=== PATIENT | male | born 1965 | race Caucasian/White ===

== ENCOUNTER 2017-11-14 13:29 | Observation (INO) | payer MEDICAID, OTHER ==
[~2017-11-14] VITALS: Ht 182.9 cm; Wt 84.4 kg
[~2017-11-14 13:29] MED LIST: GABA-585 PO; HYDR-971 PO; INSU100I27 SQ
--- NOTE | 2017-11-14 14:11 | RAD ---
CT head Indication:seizure and confusion Technique: CT head without IV contrast Comparison: None Findings: No pathologic extra-axial or intra-axial fluid collection. The ventricles and basal cisterns are within normal limits. The chung-white differentiation is preserved. No acute intracranial bleed. Orbits are within normal limits. No calvarial lesions. Visualized paranasal sinuses and mastoid air cells are clear. Impression: No acute intracranial process on this noncontrast CT. PQRS Compliance Statement: One or more of the following individualized dose reduction techniques were utilized for this examination: 1. Automated exposure control 2. Adjustment of the mA and/or kV according to patient size 3. Use of iterative reconstruction technique
--- NOTE | 2017-11-14 14:25 | RAD ---
Indication: Seizure and confusion. Technique: Portable AP chest x-ray Comparison: None Findings: Heart is normal in size. Increased pulmonary vascularity is noted with signs of cephalization. Linear atelectasis is seen in the left midlung zone. No pneumothorax or pleural effusion. Visualized bony thorax within normal limits Impression: Findings suggestive of pulmonary vascular congestion without chapito pulmonary edema.
[2017-11-14 14:36] LABS: BASO # 0.1 x10^3/uL (0.0-0.2); BASO % 1 % (0-3); EOS # 0.1 x10^3/uL (0.0-0.7); EOS % 1 % (0-3); HEMATOCRIT 42.9 % (39.0-53.0); HEMOGLOBIN 14.2 g/dL (13.0-17.5); LYMPH # 1.6 x10^3/uL (1.0-4.8); LYMPH % 19 % (24-48); MEAN CORPUSCULAR HEMOGLOBIN 30 pg (25-35); MEAN CORPUSCULAR HGB CONC 33 g/dL (31-37); MEAN CORPUSCULAR VOLUME 91 fL (79-100); MONO # 0.6 x10^3/uL (0.0-1.1); MONO % 7 % (0-9); NEUT # 6.2 x10^3uL (1.8-7.7); NEUT % 72 % (31-73); PLATELET COUNT 295 x10^3/uL (140-400); RED BLOOD COUNT 4.71 x10^6/uL (4.30-5.70); RED CELL DISTRIBUTION WIDTH 13.8 % (11.5-14.5); WHITE BLOOD COUNT 8.7 x10^3/uL (4.0-11.0)
[2017-11-14] MEDS ORDERED: IV NORMAL SALINE 1,000ML 1,000 ML IV ONE (15:30)
--- NOTE | 2017-11-14 15:41 | EKG ---
[address] [address] Test Date: 2017-11-14 Test Time: 13:56:17 Pat Name: MIRZA SIU Department: Room: Gender: M Geropsychologist: : [id number] Requested By: CLINT JI Order Number: [id number] Reading MD: Measurements Intervals [place] Rate: 113 P: 35 KS: 146 QRS: 68 QRSD: 116 T: -61 QT: 340 QTc: 472 Interpretive Statements SINUS TACHYCARDIA COMPLEX(ES) WITH ABERRANT INTRAVENTRICULAR CONDUCTION LOW LIMB LEAD VOLTAGE ST & T ABNORMALITY, CONSIDER INFEROLATERAL ISCHEMIA OR LEFT VENTRICULAR STRAIN ABNORMAL ECG RI6.01 No previous ECG available for comparison
[2017-11-14 15:48] LABS: AMPHETAMINE/METHAMPHETAMINE NEG (NEG); BARBITURATES NEG (NEG); BENZODIAZEPINES NEG (NEG); CANNABINOIDS NEG (NEG); COCAINE NEG (NEG); METHADONE NEG (NEG); OPIATES NEG (NEG); PHENCYCLIDINE NEG (NEG)
[2017-11-14 15:52] LABS: BACTERIA,URINE 0 /HPF (0-FEW); BILIRUBIN,URINE NEG (NEG); CLARITY,URINE CLEAR; COLOR,URINE STRAW; GLUCOSE,URINE 500 mg/dL (NEG); NITRITE,URINE NEG (NEG); RBC,URINE 0 /HPF (0-2); SQUAMOUS EPITHELIAL CELL,UR OCC /LPF; UROBILINOGEN,URINE 0.2 mg/dL (0.2 mg/dL); WBC,URINE 0 /HPF (0-4)
[2017-11-14] MEDS ORDERED: LORazepam 2 MG/ML VIAL IV ONE (16:00)
[2017-11-14 16:10] LABS: ALBUMIN/GLOBULIN RATIO 0.7 (1.0-1.7); CALCIUM 8.8 mg/dL (8.5-10.1); CREATININE 0.8 mg/dL (0.7-1.3); GFR 100.7; MAGNESIUM 1.4 mg/dL (1.8-2.4); POTASSIUM 4.1 mmol/L (3.5-5.1); TOTAL BILIRUBIN 0.4 mg/dL (0.2-1.0); TOTAL PROTEIN 7.2 g/dL (6.4-8.2)
--- NOTE | 2017-11-14 16:19 | PHYS DOC ---
Past History Past Medical History: CAD, Diabetes, High Cholesterol, Hypertension, VA, Seizure Past Surgical History: Other Smoking: Less than 1pk/day Alcohol Use: None Drug Use: None Adult General Chief Complaint Chief Complaint: DIZZY/LIGHT HEADED HPI HPI 52-year-old male patient with history of seizure states he was admitted at [facility] because of coronary artery disease and acute VA and treated medically. Patient states he had 1 episodes of seizure and was seen at [facility] 5 days ago. Patient state he had one episode of grand mal seizure at 5 AM while he was at bed and another episode at 10 AM when he was at the shower and woke up on the floor of shower. Patient states he confused and dizzy and in no when he has to go and drove to this hospital. Patient denies chest pain, shortness of breath, focal neuro deficit, nausea and vomiting, headache, fever and chills, flulike symptoms. Patient states he had episode of seizure every 3 days. Patient denies using alcohol or illegal drugs. Review of Systems Review of Systems Constitutional: Denies fever or chills [] Eyes: Denies change in visual acuity, redness, or eye pain [] HENT: Denies nasal congestion or sore throat [] Respiratory: Denies cough or shortness of breath [] Cardiovascular: No additional information not addressed in HPI [] GI: Denies abdominal pain, nausea, vomiting, bloody stools or diarrhea [] : Denies dysuria or hematuria [] Musculoskeletal: Denies back pain or joint pain [] Integument: Denies rash or skin lesions [] Neurologic: Denies headache, focal weakness or sensory changes [] Endocrine: Denies polyuria or polydipsia [] All other systems were reviewed and found to be within normal limits, except as documented in this note. Current Medications Current Medications Current Medications Medications (Trade) Dose Ordered Sig/Jewel Start Time Stop Time Status Last Admin Dose Admin Lorazepam (Ativan) 1 mg 1X ONCE 11/14/17 16:00 11/14/17 16:01 DC Sodium Chloride 500 ml @ 0 mls/hr 1X ONCE 11/14/17 15:30 11/14/17 15:31 DC 11/14/17 15:20 1,000 MLS/HR Allergies Allergies Allergies Coded Allergies Type Severity Reaction Last Updated Verified No Known Drug Allergies 05/24/15 No Physical Exam Physical Exam Constitutional: Well developed, well nourished, no acute distress, non-toxic appearance. [] HENT: Normocephalic, atraumatic, bilateral external ears normal, oropharynx moist, no oral exudates, nose normal. [] Eyes: PERRLA, EOMI, conjunctiva normal, no discharge. [] Neck: Normal range of motion, no tenderness, supple, no stridor. [] Cardiovascular:Heart rate regular rhythm, no murmur [] Lungs & Thorax: Bilateral breath sounds clear to auscultation [] Abdomen: Bowel sounds normal, soft, no tenderness, no masses, no pulsatile masses. [] Skin: Warm, dry, no erythema, no rash. [] Back: No tenderness, no CVA tenderness. [] Extremities: No tenderness, no cyanosis, no clubbing, ROM intact, no edema. [] Neurologic: Alert and oriented X 3, normal motor function, normal sensory function, no focal deficits noted. [] Psychologic: Affect normal, judgement normal, mood normal. [] Current Patient Data Vital Signs Vital Signs Date Time Temp Pulse Resp B/P (MAP) Pulse Ox O2 Delivery O2 Flow Rate FiO2 11/14/17 13:35 99.6 117 20 97 Room Air Lab Results Laboratory Tests Test 11/14/17 14:15 11/14/17 15:15 White Blood Count 8.7 x10^3/uL (4.0-11.0) Red Blood Count 4.71 x10^6/uL (4.30-5.70) Hemoglobin 14.2 g/dL (13.0-17.5) Hematocrit 42.9 % (39.0-53.0) Mean Corpuscular Volume 91 fL (79-100) Mean Corpuscular Hemoglobin 30 pg (25-35) Mean Corpuscular Hemoglobin Concent 33 g/dL (31-37) Red Cell Distribution Width 13.8 % (11.5-14.5) Platelet Count 295 x10^3/uL (140-400) Neutrophils (%) (Auto) 72 % (31-73) Lymphocytes (%) (Auto) 19 % (24-48) L Monocytes (%) (Auto) 7 % (0-9) Eosinophils (%) (Auto) 1 % (0-3) Basophils (%) (Auto) 1 % (0-3) Neutrophils # (Auto) 6.2 x10^3uL (1.8-7.7) Lymphocytes # (Auto) 1.6 x10^3/uL (1.0-4.8) Monocytes # (Auto) 0.6 x10^3/uL (0.0-1.1) Eosinophils # (Auto) 0.1 x10^3/uL (0.0-0.7) Basophils # (Auto) 0.1 x10^3/uL (0.0-0.2) Prothrombin Time 11.0 SEC (9.4-11.4) Prothrombin Time INR 1.1 (0.9-1.1) Urine Collection Type Unknown Urine Color Straw Urine Clarity Clear Urine pH 7.0 Urine Specific [place] 1.010 Urine Protein 30 mg/dl (NEG-TRACE) Urine Glucose (UA) 500 mg/dL (NEG) Urine Ketones (Stick) Neg mg/dL (NEG) Urine Blood Neg (NEG) Urine Nitrite Neg (NEG) Urine Bilirubin Neg (NEG) Urine Urobilinogen Dipstick 0.2 mg/dL (0.2 mg/dL) Urine Leukocyte Esterase Neg (NEG) Urine RBC 0 /HPF (0-2) Urine WBC 0 /HPF (0-4) Urine Squamous Epithelial Cells Occ /LPF Urine Bacteria 0 /HPF (0-FEW) Troponin I Quantitative < 0.017 ng/mL (0-0.055) Urine Opiates Screen Neg (NEG) Urine Methadone Screen Neg (NEG) Urine Barbiturates Neg (NEG) Urine Phencyclidine Screen Neg (NEG) Urine Amphetamine/Methamphetamine Neg (NEG) Urine Benzodiazepines Screen Neg (NEG) Urine Cocaine Screen Neg (NEG) Urine Cannabinoids Screen Neg (NEG) Urine Ethyl Alcohol Neg (NEG) EKG EKG EKG interpreted by me. EKG at 1358 showed sinus tachycardia at rate of 113, complexes with aberrant intraventricular conduction, no voltage QRS, poor R- wave progress in anteroseptal leads, no acute ST and T-wave abnormality Radiology/Procedures Radiology/Procedures [] Course & Med Decision Making Course & Med Decision Making Pertinent Labs and Imaging studies reviewed. (See chart for details) Evaluation of patient in ER showed 52-year-old female patient with history of seizure and is sent MRI the ER because of 2 episodes of seizure today and confusion and dizziness and not feeling right. Patient had tachycardia 110 without fever or hypertension or confusion. Patient had unremarkable physical exam. Labs showed CHF and low magnesium. CT head and chest x-ray was unremarkable except for CHF. Evaluation treated with 500 mL normal saline and acumen and his tachycardia improved. Plan to admit patient with diagnosis of status epilepticus and CHF and dizziness. [] Dragon Disclaimer Dragon Disclaimer This electronic medical record was generated, in whole or in part, using a voice recognition dictation system. Departure Departure: Impression: Primary Impression: Status epilepticus Additional Impressions: Dizziness Tachycardia Fall at home Hypomagnesemia Uncontrolled diabetes mellitus Tobacco abuse Tobacco abuse counseling CHF (congestive heart failure) Disposition: 09 ADMITTED INPATIENT (At 1624) Admitting Physician: Sangita Pritchett Condition: IMPROVED Referrals: PCPJESU (PCP) Critical Care Note Total Time (mins): 90 Problem Qualifiers CLINT JI MD Nov 14, 2017 16:19
[2017-11-14] MEDS ORDERED: MAGNESIUM OXIDE 400 MG TABLET PO ONE (17:00)
[2017-11-14 17:45] VITALS: BP 117/77
[2017-11-14] MEDS ORDERED: INSU100C SQ (18:27)
[2017-11-14] MEDS ORDERED: METO50TA4 PO (18:27)
[2017-11-14] MEDS ORDERED: ISOS30TA4 PO (18:27)
[2017-11-14] MEDS ORDERED: DOXE50CA PO (18:27)
[2017-11-14] MEDS ORDERED: SPIR25TA3 PO (18:27)
[2017-11-14] MEDS ORDERED: GABA-586 PO (18:27)
[2017-11-14] MEDS ORDERED: LISI2.5T PO (18:27)
[2017-11-14] MEDS ORDERED: NICO1PAT21 TP (18:27)
[2017-11-14] MEDS ORDERED: CLOP75TA PO (18:27)
[2017-11-14] MEDS ORDERED: DULA0.75 SQ (18:27)
[2017-11-14] MEDS ORDERED: ATORVASTATIN CA80 MG PO (18:27)
[2017-11-14] MEDS ORDERED: LEVE500T56 PO (18:27)
[2017-11-14] MEDS: oxyCODONE IR 5 MG TABLET PO PRN (19:54)
[2017-11-14] MEDS: NICOTINE 21MG PATCH. TD SCH (20:50)
[2017-11-14] MEDS: GABAPENTIN 300 MG CAPSULE. PO SCH (20:50)
[2017-11-14] MEDS: levETIRAcetam 500 MG TABLET PO SCH (20:51)
[2017-11-14] MEDS ORDERED: DOXEPIN HCL 25 MG CAPSULE PO SCH (21:00)
[2017-11-14] MEDS ORDERED: METOPROLOL SUCC 24HR ER 50 MG TAB.ER.24H. PO SCH (21:00)
[2017-11-14] MEDS ORDERED: ATORVASTATIN CALCIUM 20 MG TABLET PO SCH (21:00)
[2017-11-14] MEDS: INSULIN ASPART 300 UNITS/3 ML INSULN.PEN SQ SCH (21:49)
[2017-11-14 23:00] VITALS: BP 92/66
--- NOTE | 2017-11-14 23:46 | HP ---
ADMIT DATE: 11/14/2017 HISTORY OF PRESENT ILLNESS: The patient is a 52-year-old male patient with multitude of medical problems who apparently was diagnosed with seizures, although the specifics are very confusing. He, according to him, [facility] of coronary artery disease and acute myocardial infarction. According to him, he was even life-flighted from [place] to [facility] the [place]. They did cardiac catheterization; however, his arteries were too small to put a stent and while he was there, he developed seizure because that was induced by tramadol. He had a seizure 5 days ago and was admitted to [facility], was discharged home and apparently he claimed that he had a grand mal seizure at 5 o'clock in the morning and he was at bed and another episode at 10 a.m. while having a shower and he woke up on the floor of the shower. He was confused and dizzy and there was no one there to help, so he drove himself to the hospital. The patient denied any chest pain or shortness of breath, but when he came inside the hospital, he complained of aches and pains all over because of the fall in the bathtub. He was evaluated in the Emergency Room and was admitted for breakthrough seizures. His story does not really add up to me; however, he claimed that he was seen by Dr. Mccord, who started him on Keppra, something that is easily verifiable, although I asked him whether Dr. Mccord has advised him not to drive and he said "yes," but apparently there was nobody there to drive him to the hospital, while in fact he was in a postictal state. His lab work in the Emergency Room was unremarkable. In particular, there is no metabolic reason for light hyponatremia or hypercalcemia or hypoglycemia. He has no leukocytosis. He was afebrile and his urine toxicology screen was negative and basically was admitted to increase the dose of Keppra and to consult Dr. Mccord to assist in his management. PAST MEDICAL HISTORY: Significant for diabetes, hypertension, hypercholesterolemia, coronary artery disease status post myocardial infarction, and seizure disorder. PAST SURGICAL HISTORY: Significant for cervical laminectomy, sinus surgery, LASIK surgery of both eyes, and left shoulder surgery. ALLERGIES: He claimed that he is ALLERGIC TO TRAMADOL and ALL NONSTEROIDAL ANTI-INFLAMMATORY MEDICATIONS INCLUDING TORADOL, IBUPROFEN, AND ALEVE MEDICATIONS: He is currently on Keppra 250 mg, he takes 2 tablets twice a day; tramadol 50 mg every 6 hours; nicotine patch 21 mg topically daily; atorvastatin 80 mg daily; Plavix 75 mg once a day; metoprolol succinate extended release 50 mg once a day; gabapentin 300 mg 3 times a day; isosorbide dinitrate 30 mg once a day; lisinopril 2.5 mg daily, spironolactone 25 mg half a tablet once a day; Humalog 3 times a day; Lantus daily; promethazine with codeine; and he is also on doxepin 25 mg 1-2 tablets at bedtime. FAMILY HISTORY: He has 3 sisters, the youngest has type 1 diabetes. His father is still alive at age of 82 and has hypertension, non-Hodgkin lymphoma. His mother is alive at age of 82 and healthy. SOCIAL HISTORY: He is , has no children. He smokes 5-6 cigarettes per day. 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 He stopped using marijuana about 15 years ago. PHYSICAL EXAMINATION: GENERAL: On examining him, he looked pale, but no jaundice, cyanosis, or thyromegaly. No jugular venous distention. No limb edema. VITAL SIGNS: His heart rate was 117, blood pressure was 131/87, temperature was 99.6, respiratory rate 20, and oxygen saturation was 97%. HEAD, EYES, EARS, NOSE, AND THROAT: Showed normocephalic, atraumatic. NECK: Supple. HEART: Showed normal first and second heart sounds with no gallop, rub, or murmur. CHEST: Clear to auscultation. No crepitation or rhonchi. ABDOMEN: Distended, soft, nontender. No guarding or rigidity. No organomegaly. Hernial orifice is intact. Bowel sounds normal. NEUROLOGIC: He was awake, alert, responding appropriately. Cranial nerves intact. He moves extremities without difficulty, ambulates without assistance or assistive devices. LABORATORY DATA: His lab work showed a white cell count of 8700, hemoglobin 14, hematocrit 42, MCV 91, and platelet count 295,000. His chemistry showed a serum sodium 140, potassium 4.1, chloride 104, bicarbonate 26, anion gap of 10, BUN 13, creatinine 0.8, estimated GFR was 100 mL per minute. His glucose was 279, lactic acid was 1. Calcium was 8.8, magnesium was 1.4. Total bilirubin, AST, ALT, alkaline phosphatase were normal. His beta natriuretic peptide was 1768. Total protein was 7.2, albumin 3. His prothrombin time was 11, INR 1.1. His urinalysis was essentially unremarkable apart from trace of proteinuria and toxicology screen was negative. He has had a CT scan of the head, which basically showed no pathological extraaxial and intraaxial fluid collection. The ventricles and basal cisterns are within normal limits. The Muller-white differentiation is preserved. No acute intracranial bleed. The orbits are within normal limits. No calvarial lesion visualized. Paranasal sinuses and mastoid air cells are clear. His chest x-ray showed that the heart is normal in size. Increased pulmonary vascularity is noted with signs of cephalization. Linear atelectasis is seen in the left mid lung zone. No pneumothorax or pleural effusion visualized. Bony thorax are within normal limit. Findings suggestive of pulmonary vascular congestion without chapito pulmonary edema. PLAN: My plan is to continue all his medication and consult Dr. Mccord and the Cardiology team, do 2 more sets of cardiac enzyme, and get the records from [facility] to verify all his claims. NILDA RICE MD DR: KAYODE/idris JOB#: [id number] / [id number]
[2017-11-15] MEDS: oxyCODONE IR 5 MG TABLET PO PRN ×2 (04:04→11:19)
[2017-11-15 06:06] VITALS: BP 117/80
[2017-11-15 06:44] LABS: HEMATOCRIT 40.5 % (39.0-53.0); HEMOGLOBIN 13.3 g/dL (13.0-17.5); RED BLOOD COUNT 4.4 x10^6/uL (4.30-5.70); RED CELL DISTRIBUTION WIDTH 13.8 % (11.5-14.5); WHITE BLOOD COUNT 7.2 x10^3/uL (4.0-11.0)
[2017-11-15 06:53] LABS: ALBUMIN 2.7 g/dL (3.4-5.0); ALBUMIN/GLOBULIN RATIO 0.7 (1.0-1.7); CALCIUM 8.5 mg/dL (8.5-10.1); CREATININE 0.6 mg/dL (0.7-1.3); GFR 140.4; POTASSIUM 3.9 mmol/L (3.5-5.1); TOTAL BILIRUBIN 0.3 mg/dL (0.2-1.0); TOTAL PROTEIN 6.4 g/dL (6.4-8.2)
[2017-11-15] MEDS: levETIRAcetam 500 MG TABLET PO SCH (08:29)
[2017-11-15] MEDS ORDERED: ACETAMINOPHEN 325 MG TABLET PO PRN (08:30)
[2017-11-15] MEDS: GABAPENTIN 300 MG CAPSULE. PO SCH ×2 (08:30→13:48)
[2017-11-15] MEDS: NICOTINE 21MG PATCH. TD SCH (08:31)
[2017-11-15] MEDS: INSULIN ASPART 300 UNITS/3 ML INSULN.PEN SQ SCH ×2 (08:36→12:00)
[2017-11-15] MEDS ORDERED: CLOPIDOGREL BISULFATE 75 MG TABLET PO SCH (09:00)
[2017-11-15] MEDS ORDERED: SPIRONOLACTONE 25 MG TABLET PO SCH (09:00)
[2017-11-15] MEDS ORDERED: LISINOPRIL 2.5 MG TABLET PO SCH (09:00)
[2017-11-15] MEDS ORDERED: ISOSORBIDE MONONITRATE ER 30 MG TAB.ER.24H PO SCH (09:00)
--- NOTE | 2017-11-15 10:38 | PDOC2 ---
PAWEL CONCEPCION APRN 11/15/17 1038: CONSULT Date of Admission DATE: 11/15/17 TIME: 10:22 Reason for Consult: CAD Problem List Problems Medical Problems: (1) CHF (congestive heart failure) Status: Acute (2) Dizziness Status: Acute (3) Fall at home Status: Acute (4) Hypomagnesemia Status: Acute (5) Status epilepticus Status: Acute (6) Tachycardia Status: Acute (7) Tobacco abuse Status: Acute (8) Tobacco abuse counseling Status: Acute (9) Uncontrolled diabetes mellitus Status: Acute History of Present Illness Mr Peralta is a 52 year old male who presented to the ED with complaints of seizures. He presents with complaints of one episode of grand mal seizure at 5 AM yesterday while he was at bed and a second seizure at 10 AM when he was in the shower. He reports that he woke up on the floor of shower. Afterwards he reports being confused and dizzy but had noone to transport him so decided to drive himself to the hospital. He was reportedly admitted within the last 1 month to [facility] for [place] and underwent an extensive cardiac workup. Consult was called due to the patient history of coronary disease with recent [place]. He denied chest pain, shortness of breath, congestive symptoms, palpitations or focal neuro deficit. Patient reports episodes of seizure every 3 days. He currently complains of pain "all over" but worse with deep inspiration and movement. Past Medical History diabetes, hypertension, hypercholesterolemia, coronary artery disease status post myocardial infarction, and seizure disorder. Past Surgical History cervical laminectomy, sinus surgery, LASIK surgery of both eyes, and left shoulder surgery. Family History type 1 diabetes, hypertension, non-Hodgkin lymphoma Social History He is , has no children. He smokes 5-6 cigarettes per day. He does not drink alcohol. He stopped using marijuana about 15 years ago and denies other illicit drugs. Current Medications Current Medications Sodium Chloride 500 ml @ 0 mls/hr 1X ONCE IV Last administered on 11/14/17at 15: 20; Start 11/14/17 at 15:30; Stop 11/14/17 at 15:31; Status DC Lorazepam (Ativan) 1 mg 1X ONCE IV Last administered on 11/14/17at 16:00; Start 11/14/17 at 16:00; Stop 11/14/17 at 16:01; Status DC Magnesium Oxide (Magnesium Oxide) 400 mg 1X ONCE PO Last administered on 17:06; Start 11/14/17 at 17:00; Stop 11/14/17 at 17:01; Status DC Oxycodone HCl (Roxicodone) 5 mg PRN Q6HRS PRN PO PAIN Last administered on 04:04; Start 11/14/17 at 19:15 Clopidogrel Bisulfate (Plavix) 75 mg DAILY PO Last administered on 11/15/17 08: 29; Start 11/15/17 at 09:00 Gabapentin (Neurontin) 300 mg TID PO Last administered on 11/15/17 08:30; Start 11/14/17 at 21:00 Isosorbide Mononitrate (Imdur) 15 mg DAILY PO Last administered on 11/15/17 08: 30; Start 11/15/17 at 09:00 Levetiracetam (Keppra) 500 mg BID PO Last administered on 11/15/17 08:29; Start 11/14/17 at 21:00 Lisinopril (Prinivil) 2.5 mg DAILY PO Last administered on 11/15/17 08:29; Start 11/15/17 at 09:00 Metoprolol Succinate (Toprol Xl) 50 mg QHS PO Last administered on 11/14/17 20: 50; Start 11/14/17 at 21:00 Nicotine (Nicoderm Cq 21mg) 1 patch DAILY TD Last administered on 11/15/17 08: 31; Start 11/14/17 at 20:30 Spironolactone (Aldactone) 12.5 mg DAILY PO Last administered on 11/15/17 08:31 ; Start 11/15/17 at 09:00 Atorvastatin Calcium (Lipitor) 80 mg QHS PO Last administered on 11/14/17 21:25 ; Start 11/14/17 at 21:00 Doxepin HCl (SINEquan) 50 mg QHS PO Last administered on 11/14/17 21:25; Start 11/14/17 at 21:00 Insulin Aspart (NovoLOG) 7 units TIDWMEALS SQ Last administered on 11/15/17 08: 36; Start 11/14/17 at 20:00 Acetaminophen (Tylenol) 650 mg PRN Q6HRS PRN PO PAIN / TEMP; Start 11/15/17 at 08:30; Stop 11/15/17 at 08:40; Status DC Active Scripts Active Reported Trulicity (Dulaglutide) 0.75 Mg/0.5 Ml Pen.injctr 0.75 Mg SQ Humalog (Insulin Lispro) 100 Unit/1 Ml Cartridge 7 Unit SQ TIDWMEALS Doxepin Hcl 50 Mg Capsule 1 Cap PO QHS Spironolactone 25 Mg Tablet 0.5 Tab PO DAILY Lisinopril 2.5 Mg Tablet 1 Tab PO DAILY Isosorbide Mononitrate Er (Isosorbide Mononitrate) 30 Mg Tab.er.24h 0.5 Tab PO DAILY Gabapentin 300 Mg Capsule 300 Mg PO TID Toprol Xl (Metoprolol Succinate) 50 Mg Tab.er.24h 1 Tab PO QHS Clopidogrel (Clopidogrel Bisulfate) 75 Mg Tablet 1 Tab PO DAILY Atorvastatin Calcium 80 Mg Tablet 1 Tab PO DAILY NICODERM CQ 21mg (Nicotine) 1 Each Patch.td24 1 Patch TP DAILY Keppra (Levetiracetam) 500 Mg Tablet 1 Tab PO BID Allergies: Coded Allergies: acetaminophen (Verified Allergy, Severe, seizures, 11/15/17) ibuprofen (Verified Allergy, Severe, seizures, 11/15/17) ketorolac (Verified Allergy, Intermediate, seizure, 11/15/17) tramadol (Verified Allergy, Intermediate, 11/15/17) Review of System as per HPI General: Alert, Oriented X3, Cooperative, No acute distress HEENT: Atraumatic, EOMI Lungs: Clear to auscultation Heart: Regular rate, Normal S1, Normal S2, Other (no significant murmurs, no gallops, clicks or rubs) Abdomen: Normal bowel sounds, Soft, No tenderness Extremities: No cyanosis, Normal pulses, Other (1+ edema) Neuro: Normal speech, Strength at 5/5 X4 ext Psych/Mental Status: Mental status NL, Other (flat affect) VITALS Vital Signs Date Time Temp Pulse Resp B/P (MAP) Pulse Ox O2 Delivery O2 Flow Rate FiO2 11/15/17 08:30 78 117/80 11/15/17 06:06 97.4 20 96 Room Air Labs Laboratory Tests Test 11/14/17 14:15 11/14/17 15:15 11/14/17 16:35 11/14/17 20:04 White Blood Count 8.7 x10^3/uL (4.0-11.0) Red Blood Count 4.71 x10^6/uL (4.30-5.70) Hemoglobin 14.2 g/dL (13.0-17.5) Hematocrit 42.9 % (39.0-53.0) Mean Corpuscular Volume 91 fL (79-100) Mean Corpuscular Hemoglobin 30 pg (25-35) Mean Corpuscular Hemoglobin Concent 33 g/dL (31-37) Red Cell Distribution Width 13.8 % (11.5-14.5) Platelet Count 295 x10^3/uL (140-400) Neutrophils (%) (Auto) 72 % (31-73) Lymphocytes (%) (Auto) 19 % (24-48) Monocytes (%) (Auto) 7 % (0-9) Eosinophils (%) (Auto) 1 % (0-3) Basophils (%) (Auto) 1 % (0-3) Neutrophils # (Auto) 6.2 x10^3uL (1.8-7.7) Lymphocytes # (Auto) 1.6 x10^3/uL (1.0-4.8) Monocytes # (Auto) 0.6 x10^3/uL (0.0-1.1) Eosinophils # (Auto) 0.1 x10^3/uL (0.0-0.7) Basophils # (Auto) 0.1 x10^3/uL (0.0-0.2) Prothrombin Time 11.0 SEC (9.4-11.4) Prothromb Time International Ratio 1.1 (0.9-1.1) Urine Collection Type Unknown Urine Color Straw Urine Clarity Clear Urine pH 7.0 Urine Specific [place] 1.010 Urine Protein 30 mg/dl (NEG-TRACE) Urine Glucose (UA) 500 mg/dL (NEG) Urine Ketones (Stick) Neg mg/dL (NEG) Urine Blood Neg (NEG) Urine Nitrite Neg (NEG) Urine Bilirubin Neg (NEG) Urine Urobilinogen Dipstick 0.2 mg/dL (0.2 mg/dL) Urine Leukocyte Esterase Neg (NEG) Urine RBC 0 /HPF (0-2) Urine WBC 0 /HPF (0-4) Urine Squamous Epithelial Cells Occ /LPF Urine Bacteria 0 /HPF (0-FEW) Sodium Level 140 mmol/L (136-145) Potassium Level 4.1 mmol/L (3.5-5.1) Chloride Level 104 mmol/L (98-107) Carbon Dioxide Level 26 mmol/L (21-32) Anion Gap 10 (6-14) Blood Urea Nitrogen 13 mg/dL (8-26) Creatinine 0.8 mg/dL (0.7-1.3) Estimated GFR (Cockcroft-Gault) 100.7 BUN/Creatinine Ratio 16 (6-20) Glucose Level 279 mg/dL (70-99) Calcium Level 8.8 mg/dL (8.5-10.1) Magnesium Level 1.4 mg/dL (1.8-2.4) Total Bilirubin 0.4 mg/dL (0.2-1.0) Aspartate Amino Transf (AST/SGOT) 28 U/L (15-37) Alanine Aminotransferase (ALT/SGPT) 42 U/L (16-63) Alkaline Phosphatase 111 U/L (46-116) Creatine Kinase 292 U/L (39-308) Creatine Kinase MB (Mass) 2.0 ng/mL (0.0-3.6) Creatine Kinase MB Relative Index 0.7 % (0-4) Troponin I Quantitative < 0.017 ng/mL (0-0.055) LO-Cer-J-Type Natriuretic Peptide 1768 pg/mL (0-124) Total Protein 7.2 g/dL (6.4-8.2) Albumin 3.0 g/dL (3.4-5.0) Albumin/Globulin Ratio 0.7 (1.0-1.7) Urine Opiates Screen Neg (NEG) Urine Methadone Screen Neg (NEG) Urine Barbiturates Neg (NEG) Urine Phencyclidine Screen Neg (NEG) Urine Amphetamine/Methamphetamine Neg (NEG) Urine Benzodiazepines Screen Neg (NEG) Urine Cocaine Screen Neg (NEG) Urine Cannabinoids Screen Neg (NEG) Urine Ethyl Alcohol Neg (NEG) Lactic Acid Level 1.0 mmol/L (0.4-2.0) Glucose (Fingerstick) 299 mg/dL (70-99) Test 11/15/17 06:10 11/15/17 07:34 White Blood Count 7.2 x10^3/uL (4.0-11.0) Red Blood Count 4.40 x10^6/uL (4.30-5.70) Hemoglobin 13.3 g/dL (13.0-17.5) Hematocrit 40.5 % (39.0-53.0) Mean Corpuscular Volume 92 fL (79-100) Mean Corpuscular Hemoglobin 30 pg (25-35) Mean Corpuscular Hemoglobin Concent 33 g/dL (31-37) Red Cell Distribution Width 13.8 % (11.5-14.5) Platelet Count 259 x10^3/uL (140-400) Sodium Level 141 mmol/L (136-145) Potassium Level 3.9 mmol/L (3.5-5.1) Chloride Level 107 mmol/L (98-107) Carbon Dioxide Level 25 mmol/L (21-32) Anion Gap 9 (6-14) Blood Urea Nitrogen 12 mg/dL (8-26) Creatinine 0.6 mg/dL (0.7-1.3) Estimated GFR (Cockcroft-Gault) 140.4 BUN/Creatinine Ratio 20 (6-20) Glucose Level 206 mg/dL (70-99) Calcium Level 8.5 mg/dL (8.5-10.1) Total Bilirubin 0.3 mg/dL (0.2-1.0) Aspartate Amino Transf (AST/SGOT) 22 U/L (15-37) Alanine Aminotransferase (ALT/SGPT) 35 U/L (16-63) Alkaline Phosphatase 90 U/L (46-116) Total Protein 6.4 g/dL (6.4-8.2) Albumin 2.7 g/dL (3.4-5.0) Albumin/Globulin Ratio 0.7 (1.0-1.7) Glucose (Fingerstick) 193 mg/dL (70-99) Images EKG - sinus rhythm, IVCD, non specific st/t abn. Head CT Impression: No acute intracranial process on this noncontrast CT. CXR - Impression: Findings suggestive of pulmonary vascular congestion without chapito pulmonary edema. Assessment/Plan 1. Recent [place] with extensive workup including cardiac cath at [facility] by patient report - CE negative. EKG without acute abnormalities. Request records from [facility]. 2. Seizures - Neuro consulted. request records from [facility]. 3. Mild pulmonary congestion, likely secondary to systolic dysfunction by history. 4. hypertension - continue home meds 5. hyperlipidemia - continue statin, request recent lipid profile 6. diabetes mellitus - per PCP Problems: RODERICK TORRES MD 11/15/17 1614: CONSULT Allergies: Coded Allergies: acetaminophen (Verified Allergy, Severe, seizures, 11/15/17) ibuprofen (Verified Allergy, Severe, seizures, 11/15/17) ketorolac (Verified Allergy, Intermediate, seizure, 11/15/17) tramadol (Verified Allergy, Intermediate, 11/15/17) Assessment/Plan Patient seen and examined Recent myocardial infarction treated at [facility]. Reportedly recent catheterization. Patient now appears more comfortable. No acute EKG changes. No elevation in troponin. We'll continue present medical treatment and obtain records from [facility]. Seizure disorder. Neurology consultation pending. Probable mild acute on chronic systolic heart failure. We'll treat with diuretics. Hypertension. Continue medical treatment. Hyperlipidemia. Statins. Diabetes mellitus as per the primary service. Thank you for allowing us to participate in the care of your patient. Problems: PAWEL CONCEPCION APRN Nov 15, 2017 10:38 RODERICK TORRES MD Nov 15, 2017 16:14
[2017-11-15 11:04] VITALS: BP 110/78
[2017-11-15] MEDS ORDERED: oxyCODONE IR 5 MG TABLET PO PRN (11:45)
[2017-11-15] MEDS ORDERED: MAGNESIUM SULFATE 1GM 100 ML IV ONE (13:30)
[2017-11-15] MEDS ORDERED: METHOCARBAMOL 500 MG TABLET PO PRN (13:30)
[2017-11-15] MEDS ORDERED: METHOCARBAMOL 500 MG TABLET PO ONE (13:30)
[2017-11-15 14:41] VITALS: BP 108/78
--- NOTE | 2017-11-15 16:02 | EKG ---
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
[2017-11-15 20:08] LABS: HEMOGLOBIN A1C 11.4 % (4.8-5.6)
--- NOTE | 2017-11-15 21:32 | DS ---
DATE OF DISCHARGE: 11/15/2017 REASON FOR DISCHARGE: Against medical advice. DISCHARGE DIAGNOSES: 1. Seizure activity. 2. Interaction of tramadol with alcohol on 11/10/2017. 3. Seizure activity secondary to tramadol. 4. History of polysubstance abuse. Drug screen negative. 5. Chronic pain. 6. Cardiomyopathy with ejection fraction of 23%. 7. Elevated troponin. The patient is made aware of the need for further workup and declined. 8. Tobacco use disorder. HOSPITAL COURSE: The patient was admitted by Dr. Pritchett on 11/14/2017 for possible seizure, which occurred in the shower. He had incidentally had another seizure on 11/10/2017. At that time, he had alcohol in his system and had been taking tramadol. He was admitted and placed on his medications. He was seen by Dr. Mccord. He was treated for his pain with oxycodone as he claims multiple drug allergies including Tylenol. He was seen by Cardiology, who were waiting for the results of his cath. His troponin increased and he was strongly encouraged to stick around for further workup. He was found outside smoking. He was not satisfied with his pain management and so left strongly against medical advice. PHYSICAL EXAMINATION: He was examined earlier: VITAL SIGNS: Blood pressure was 110/78, pulse 84, respirations 20, temperature 98.2, and pulse ox 95% on room air. GENERAL: The patient was alert and oriented. HEENT: Tongue was moist. NECK: Supple. LUNGS: Clear. Trapezius muscle tenderness noted. CARDIOVASCULAR: Regular rhythm and rate. EXTREMITIES: Without edema. He has ruborous lower extremities consistent with venous insufficiency. LABORATORY DATA: As stated, his troponin increased from 0.017 to 0.105. PLAN: Again left AMA. Strongly encouraged to stay. Declined. SUSU KIRAN DO DR: RAD/idris JOB#: [id number] / [id number]
== END 2017-11-15 14:45 | disposition left against medical advice (07) ==
LOC: ER 13:29 → OBSVTOIN 17:30 → 1 SOUTH 17:30 → INTOOBSV 17:30 → OBSVTOIN 17:36
PROVIDERS: ADMIT Internal Medicine; ATTEND Internal Medicine
DX: G40.409 Other generalized epilepsy and epileptic syndromes, not intractable, without status epilepticus (principal); E11.9 Type 2 diabetes mellitus without complications; E78.00 Pure hypercholesterolemia, unspecified; I25.10 Atherosclerotic heart disease of native coronary artery without angina pectoris; F17.210 Nicotine dependence, cigarettes, uncomplicated; G89.29 Other chronic pain; I25.2 Old myocardial infarction; I42.9 Cardiomyopathy, unspecified; I11.0 Hypertensive heart disease with heart failure; I50.23 Acute on chronic systolic (congestive) heart failure; E78.5 Hyperlipidemia, unspecified
CPT/HCPCS: 36415; 70450; 71045; 80053; 80061; 80307; 81001; 82553; 82947; 83036; 83605; 83735; 83880; 84484; 85025; 85027; 85610; 87040; 93005; 96361; 96365; 96372; 96375; 97162; 97165; 99285; G0378; J1815; J2060; J3475; G0379; G0479; J7030

== ENCOUNTER 2017-12-09 09:46 | Inpatient (IN) | payer OTHER ==
[2017-12-09] VITALS (8 sets, daily range): BP systolic 98–111; BP diastolic 58–80
[~2017-12-09] VITALS: Ht 180.3 cm; Wt 96.2 kg
[~2017-12-09 09:46] MED LIST changes: +ATORVASTATIN CA80 MG PO; +CLOP75TA PO; +DOXE50CA PO; +DULA0.75 SQ; +GABA-586 PO; +INSU100C SQ; +ISOS30TA4 PO; +LEVE500T56 PO; +LISI2.5T PO; +METO50TA4 PO; +NICO1PAT21 TP; +SPIR25TA3 PO
[2017-12-09] MEDS ORDERED: NITROGLYCERIN OINT 1 GM PACKET. TP ONE (10:15)
[2017-12-09] MEDS ORDERED: FUROSEMIDE 40 MG/4 ML VIAL IVP ONE (10:15)
[2017-12-09] MEDS ORDERED: oxyCODONE IR 5 MG TABLET PO STA (10:25)
--- NOTE | 2017-12-09 10:31 | RAD ---
AP chest, 12/09/2017: History: Chest pain, shortness of breath Comparison is made to a study from 11/14/2017. There has been an interval median sternotomy. The heart is at the upper limits of normal in size. The pulmonary vascularity appears to be within normal limits. There are now hazy bibasilar opacities suggesting pleural fluid and underlying atelectasis, left greater than right. There is no evidence of pneumothorax. IMPRESSION: Bibasilar opacities, left greater than right, suggest pleural fluid with underlying atelectasis/infiltrate. A component of pneumonia cannot be excluded.
[2017-12-09 10:34] LABS: BASO # 0.1 x10^3/uL (0.0-0.2); BASO % 1 % (0-3); EOS # 0.2 x10^3/uL (0.0-0.7); EOS % 1 % (0-3); HEMATOCRIT 31.3 % (39.0-53.0); HEMOGLOBIN 10.3 g/dL (13.0-17.5); LYMPH # 1.3 x10^3/uL (1.0-4.8); LYMPH % 9 % (24-48); MEAN CORPUSCULAR HEMOGLOBIN 29 pg (25-35); MEAN CORPUSCULAR HGB CONC 33 g/dL (31-37); MEAN CORPUSCULAR VOLUME 89 fL (79-100); MONO # 0.9 x10^3/uL (0.0-1.1); MONO % 6 % (0-9); NEUT # 12.3 x10^3uL (1.8-7.7); NEUT % 83 % (31-73); PLATELET COUNT 452 x10^3/uL (140-400); RED BLOOD COUNT 3.53 x10^6/uL (4.30-5.70); RED CELL DISTRIBUTION WIDTH 13.9 % (11.5-14.5); WHITE BLOOD COUNT 14.9 x10^3/uL (4.0-11.0)
--- NOTE | 2017-12-09 10:43 | PHYS DOC ---
Past History Past Medical History: CAD, Diabetes, High Cholesterol, Hypertension, [place], Seizure Past Surgical History: Other Smoking: Less than 1pk/day Alcohol Use: None Drug Use: None Adult General Chief Complaint Chief Complaint: CHEST PAIN HPI HPI Patient is a 52-year-old male presenting to the emergency department for evaluation of chest pain shortness of breath and lower extremity edema. Patient has extensive cardiac history with risk factors and was at [facility] 2 weeks ago and had a current triple bypass surgery with Dr. Russell? 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 Quevedo. Patient says that he has been taking his medications as prescribed and he said he missed his oxycodone this morning and is requesting this. Chest pain is sharp and tightness in the left side of his chest with no radiation diaphoresis nausea vomiting but he does feel the shortness of breath. He says that he has been having this chest pain ever since leaving the hospital and that he had lower extremity edema as well but has worsened. He admits that he was more active than he probably should've been yesterday as he was out with his mother and may have strained himself too much. Review of Systems Review of Systems Constitutional: Denies fever or chills [] Eyes: Denies change in visual acuity, redness, or eye pain [] HENT: Denies nasal congestion or sore throat [] Respiratory: + cough, shortness of breath [] Cardiovascular: + CP GI: Denies abdominal pain, nausea, vomiting, bloody stools or diarrhea [] : Denies dysuria or hematuria [] Musculoskeletal: Denies back pain or joint pain [] Integument: Denies rash or skin lesions [] Neurologic: Denies headache, focal weakness or sensory changes [] All other systems were reviewed and found to be within normal limits, except as documented in this note. Current Medications Current Medications Current Medications Medications (Trade) Dose Ordered Sig/Jewel Start Time Stop Time Status Last Admin Dose Admin Furosemide (Lasix) 40 mg 1X ONCE 12/09/17 10:15 12/09/17 10:16 DC 12/09/17 10:23 40 MG Nitroglycerin (Nitro-Bid Oint) 1 inch 1X ONCE 12/09/17 10:15 12/09/17 10:16 DC 12/09/17 10:24 1 INCH Oxycodone HCl (Roxicodone) 10 mg 1X STAT 12/09/17 10:25 12/09/17 10:29 DC Allergies Allergies Allergies Coded Allergies Type Severity Reaction Last Updated Verified acetaminophen Allergy Severe seizures 11/15/17 Yes ibuprofen Allergy Severe seizures 11/15/17 Yes ketorolac Allergy Intermediate seizure 11/15/17 Yes tramadol Allergy Intermediate 11/15/17 Yes Physical Exam Physical Exam Constitutional: Well developed, well nourished, no acute distress, non-toxic appearance. [] HENT: Normocephalic, atraumatic, bilateral external ears normal, oropharynx moist, no oral exudates, nose normal. [] Eyes: PERRLA, EOMI, conjunctiva normal, no discharge. [] Neck: Normal range of motion, no tenderness, supple, no stridor. [] Cardiovascular:Heart rate regular rhythm, no murmur [] Lungs & Thorax: Bilateral breath sounds diminished bilaterally with crackles at the bases Abdomen: Bowel sounds normal, soft, no tenderness, no masses, no pulsatile masses. [] Skin: Warm, dry, no erythema, no rash. [] Back: No tenderness, no CVA tenderness. [] Extremities: No tenderness, no cyanosis, no clubbing, ROM intact, 3-4+ edema bilaterally. [] Neurologic: Alert and oriented X 3, normal motor function, normal sensory function, no focal deficits noted. [] Current Patient Data Vital Signs Vital Signs Date Time Temp Pulse Resp B/P (MAP) Pulse Ox O2 Delivery O2 Flow Rate FiO2 12/09/17 10:24 79 115/61 Lab Results Laboratory Tests Test 12/09/17 10:19 White Blood Count 14.9 x10^3/uL (4.0-11.0) H Red Blood Count 3.53 x10^6/uL (4.30-5.70) L Hemoglobin 10.3 g/dL (13.0-17.5) L Hematocrit 31.3 % (39.0-53.0) L Mean Corpuscular Volume 89 fL (79-100) Mean Corpuscular Hemoglobin 29 pg (25-35) Mean Corpuscular Hemoglobin Concent 33 g/dL (31-37) Red Cell Distribution Width 13.9 % (11.5-14.5) Platelet Count 452 x10^3/uL (140-400) H Neutrophils (%) (Auto) 83 % (31-73) H Lymphocytes (%) (Auto) 9 % (24-48) L Monocytes (%) (Auto) 6 % (0-9) Eosinophils (%) (Auto) 1 % (0-3) Basophils (%) (Auto) 1 % (0-3) Neutrophils # (Auto) 12.3 x10^3uL (1.8-7.7) H Lymphocytes # (Auto) 1.3 x10^3/uL (1.0-4.8) Monocytes # (Auto) 0.9 x10^3/uL (0.0-1.1) Eosinophils # (Auto) 0.2 x10^3/uL (0.0-0.7) Basophils # (Auto) 0.1 x10^3/uL (0.0-0.2) EKG EKG Sinus rhythm at 76 bpm with rightward axis no obvious ST elevation or depression with inverted T waves in the lateral leads Radiology/Procedures Radiology/Procedures AP chest, 12/09/2017: History: Chest pain, shortness of breath Comparison is made to a study from 11/14/2017. There has been an interval median sternotomy. The heart is at the upper limits of normal in size. The pulmonary vascularity appears to be within normal limits. There are now hazy bibasilar opacities suggesting pleural fluid and underlying atelectasis, left greater than right. There is no evidence of pneumothorax. IMPRESSION: Bibasilar opacities, left greater than right, suggest pleural fluid with underlying atelectasis/infiltrate. A component of pneumonia cannot be excluded. DICTATED AND SIGNED BY: BOBO JUNIOR MD DATE: 12/09/17 1024 Course & Med Decision Making Course & Med Decision Making Patient appears to have more of a heart failure component to his symptoms at this time. We'll check labs treat symptoms and reassess. He was given 40 mg of Lasix and put on Nitropaste. His blood pressure was 1:15 over 60s when he came in as I will not be too aggressive in lowering his blood pressure at this time. Patient's chest pain does not sound like ischemia in origin as it has been going on for more than 1 week is constant sharp with some pressure sensation. No exertional pain. He has a negative troponin which argues against cardiac ischemia at this point however this cannot be completely ruled out. He is not tachycardic of her family hypoxic so I do not suspect pulmonary embolism at this point especially with his abnormal physical exam. Patient has clinical symptoms of congestive heart failure especially given his chest x-ray shows pleural effusions with possible underlying pneumonia. He has leukocytosis and a cough. We'll treat for health care associated pneumonia in addition to treating his volume overload and heart failure. Patient will be admitted here as I do not see any reason for emergent transfer at this point. Troponins will be trended and he'll be admitted to the ICU. Critical care time of 40 minutes. Dragon Disclaimer Dragon Disclaimer This electronic medical record was generated, in whole or in part, using a voice recognition dictation system. Departure Departure: Impression: Primary Impression: Chest pain Additional Impressions: CHF (congestive heart failure) HCAP (healthcare-associated pneumonia) Disposition: ADMITTED INPATIENT Condition: GUARDED Referrals: PCP,NO (PCP) Problem Qualifiers Primary Impression: Chest pain Chest pain type: unspecified Qualified Codes: R07.9 - Chest pain, unspecified ZEFERINO GARCES DO Dec 09, 2017 10:43
[2017-12-09 10:55] LABS: ALBUMIN 2.6 g/dL (3.4-5.0); ALBUMIN/GLOBULIN RATIO 0.6 (1.0-1.7); CALCIUM 8.3 mg/dL (8.5-10.1); CREATININE 0.8 mg/dL (0.7-1.3); GFR 100.7; MAGNESIUM 1.7 mg/dL (1.8-2.4); POTASSIUM 4.3 mmol/L (3.5-5.1); TOTAL BILIRUBIN 0.4 mg/dL (0.2-1.0)
[2017-12-09] MEDS ORDERED: ONDANSETRON PF 4 MG/2 ML VIAL. IV PRN (11:15)
[2017-12-09] MEDS ORDERED: PIPERACILLIN/TAZOBACTAM 3.375 GM in IV NORMAL SALINE 50ML 50 ML IV ONE (11:15)
[2017-12-09] MEDS ORDERED: LOSARTAN 25 MG TABLET. PO STA (11:21)
[2017-12-09] MEDS ORDERED: VANCOMYCIN 2 GM in IV NORMAL SALINE 500ML 500 ML IV ONE (11:30)
[2017-12-09] MEDS ORDERED: CLOPIDOGREL BISULFATE 75 MG TABLET PO ONE (11:30)
[2017-12-09] MEDS ORDERED: IV NORMAL SALINE 50ML 50 ML ONE ×2 (11:38→11:43)
[2017-12-09] MEDS ORDERED: PIPERACILLIN/TAZOBACTAM 3.375 GM VIAL IV ONE ×2 (11:38→11:43)
--- NOTE | 2017-12-09 11:57 | EKG ---
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
[2017-12-09 14:32] LABS: AMPHETAMINE/METHAMPHETAMINE NEG (NEG); BARBITURATES NEG (NEG); BENZODIAZEPINES NEG (NEG); CANNABINOIDS NEG (NEG); COCAINE NEG (NEG); METHADONE NEG (NEG); OPIATES NEG (NEG); PHENCYCLIDINE NEG (NEG)
[2017-12-09] MEDS: VANCOMYCIN PER PHARMACY MC PRN (15:24)
[2017-12-09] MEDS ORDERED: CARV3.122 PO (17:56)
[2017-12-09] MEDS ORDERED: TAMS0.4C2 PO (17:56)
[2017-12-09] MEDS ORDERED: AMIO200T2 PO (17:56)
[2017-12-09] MEDS ORDERED: PNEUMOCOCCAL VAX SCREEN. MC PRN (18:45)
[2017-12-09] MEDS: oxyCODONE IR 5 MG TABLET PO PRN (19:18)
[2017-12-09] MEDS: PIPERACILLIN/TAZOBACTAM 3.375 GM in IV NORMAL SALINE 50ML 50 ML IV SCH ×2 (20:27→21:30)
[2017-12-09] MEDS: levETIRAcetam 500 MG TABLET PO SCH (20:28)
[2017-12-09] MEDS: LACTOBACILLUS RHAMNOSUS GG 1 CAPSULE. PO SCH (20:28)
[2017-12-09] MEDS: CARVEDILOL 3.125 MG TABLET PO SCH (20:28)
[2017-12-09] MEDS: GABAPENTIN 300 MG CAPSULE. PO SCH (20:28)
[2017-12-09] MEDS: ENOXAPARIN ** NOTE DOSE ** SYRINGE SQ SCH (20:29)
[2017-12-09] MEDS: ATORVASTATIN CALCIUM 20 MG TABLET PO SCH (20:33)
--- NOTE | 2017-12-09 20:54 | HP ---
ADMIT DATE: 12/09/2017 HISTORY OF PRESENT ILLNESS: The patient is a 52-year-old male patient, who came to the Emergency Room complaining of chest pain, shortness of breath, and lower extremity edema. He has extensive cardiac history, risk factors was at [facility] 2 weeks ago where he underwent triple bypass surgery by ____. His photogrammetric stereo compiler is Dr. Quevedo. The patient states that he has been taking his medication as prescribed, but said that he has been complaining of increasing shortness of breath, chest tightness especially in the left side, chest with no radiation, diaphoresis, nausea, vomiting, but he does have shortness of breath, marked swelling of both lower extremities. He was evaluated in the Emergency Room, was found to have leukocytosis, and chest x-ray suggested bilateral pneumonic infiltrate as well as congestive heart failure. The patient was given IV Lasix as well as pain medication and started on vancomycin and Zosyn and was admitted to ICU to continue antibiotic therapy, continue other medication, consult the cardiology as he might require Lasix drip. PAST MEDICAL HISTORY: His past medical history is significant for type 2 diabetes, hypertension, hypercholesterolemia, coronary artery disease, status post myocardial infarction as well as seizure disorder. PAST SURGICAL HISTORY: Past surgical history is significant for cervical laminectomy, sinus surgery, Lasik surgery of both eyes, left shoulder surgery and most recently triple bypass surgery at [facility]. ALLERGIES: HE IS ALLERGIC TO TRAMADOL, ALL NONSTEROIDAL ANTIINFLAMMATORY MEDICATIONS INCLUDING TORADOL, IBUPROFEN, AND ALEVE. FAMILY HISTORY: He has 3 sisters and the youngest has type 1diabetes. Her father is still alive at the age of 82 and has hypertension, non-Hodgkin lymphoma. His mother is alive at the age of 82 and healthy. SOCIAL HISTORY: He is , has no children. He smokes 5-6 cigarettes per day. He does not drink alcohol or use any recreational drugs. 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 He stopped using marijuana about 15 years ago. MEDICATIONS: He is currently on following medications: He is on: Flomax 0.4 mg once a day, lisinopril 2.5 mg once a day, isosorbide mononitrate 15 mg once a day, amiodarone 200 mg daily. He is on levetiracetam 500 mg twice a day, gabapentin 300 mg 3 times a day, carvedilol 3.125 mg twice a day. REVIEW OF SYSTEMS: The patient denied any blurring of vision, cataract, glaucoma, or macular degeneration. Denied any earache, tinnitus, or sensorineural deafness. Denied any nosebleeds, stuffy nose, or postnasal drip. Denied any sore throat, sore tongue, toothache, hoarseness of voice, or difficulty swallowing. Denied any nausea, vomiting, diarrhea, or constipation. Denied any hematemesis, melena, or hematochezia. Denied any dysuria, frequency, or hematuria. Did complain of left-sided chest pain, shortness of breath, cough with mostly dry hacking cough. Did complain of swelling of both lower extremities, but no chills, rigors, or fever. No dizziness, lightheadedness, or vertigo. PHYSICAL EXAMINATION: GENERAL: On arrival to the Emergency Room, the patient was pale, but no jaundice, cyanosis, or thyromegaly. No jugular venous distention. No limb edema. VITAL SIGNS: His heart rate was 78, blood pressure was 115/61, temperature was 98.3, respiratory rate was 78, respiratory rate was 28, and oxygen saturation was 93% on room air. HEAD, EYES, NOSE AND THROAT: Showed normocephalic, atraumatic. NECK: Was supple. HEART: Showed normal first and second sounds. No gallop, rub or murmur. The midline sternotomy surgical incision is healing nicely with no redness, tenderness, or discharges. LUNGS: There is equal bilateral expansion, air entry, vesicular sounds. I could not really appreciate any crepitation or rhonchi. ABDOMEN: Distended, soft, nontender. No guarding or rigidity. No organomegaly. Hernial orifice is intact. Bowel sounds normal. NEUROLOGIC: He was awake, alert, responding appropriately. Cranial nerves are intact. EXTREMITIES: She moves extremities without difficulty. Examination of the extremities showed no clubbing, cyanosis with marked bilateral lower extremity edema, more so on the left than the right. LABORATORY AND DIAGNOSTIC DATA: His lab work showed a white cell count 14,900, hemoglobin 10.3, hematocrit 31, MCV 89, and platelet count of 152,000 with normal manual differential. His chemistry showed a serum sodium 136, potassium 4.3, chloride 104, bicarbonate 24, anion gap 8, BUN 12, creatinine 0.8, estimated GFR was 100 mL per minute, his glucose 182. Lactic acid was only 0.8, calcium was 8.3, magnesium was 1.7. Total bilirubin, AST, ALT, alkaline phosphatase are slightly elevated. He has 3 sets of cardiac enzymes that were all normal. His B-type natriuretic peptide was 3000. Total protein was 7, albumin 2.6. His chest x-ray showed that there has been interval median sternotomy, the heart is at the upper limit of normal in size. The pulmonary vascularity appears to be within normal limits. There are now hazy bibasilar opacities, ____ underlying atelectasis left greater than right. There is no evidence of pneumothorax and the impression is that the patient has bibasilar opacities left greater than the right, left pleural effusion, underlying atelectasis and infiltrate, a component of pneumonia cannot be excluded. IMPRESSION: So, the patient was admitted with diagnoses of pneumonia as well as congestive heart failure and chest pain. He already has 3 sets of cardiac enzymes that ruled out myocardial infarction. His EKG showed that he was in sinus rhythm at 76 beats per minute with rightward axis, no obvious ST elevation or depression, and inverted T waves in the lateral leads. PLAN: My plan is to continue all his medication, continue with IV antibiotic. I will arrange for him to have a venous Doppler ultrasound of both lower extremities. I will start him on Lovenox and decide on further management accordingly. We will consult the cardiology team assessment for evaluation and management. NILDA RICE MD DR: KAYODE/idris JOB#: [id number] / [id number]
[2017-12-09] MEDS: VANCOMYCIN 1.5 GM in IV NORMAL SALINE 500ML 500 ML IV SCH (21:23)
[2017-12-09] MEDS: DOXEPIN HCL 25 MG CAPSULE PO SCH (21:25)
[2017-12-10] VITALS (18 sets, daily range): BP systolic 84–116; BP diastolic 56–76
[2017-12-10] MEDS: oxyCODONE IR 5 MG TABLET PO PRN ×5 (03:08→22:13)
[2017-12-10] MEDS: VANCOMYCIN 1.5 GM in IV NORMAL SALINE 500ML 500 ML IV SCH ×3 (04:08→21:00)
[2017-12-10 06:56] LABS: BASO # 0.1 x10^3/uL (0.0-0.2); BASO % 1 % (0-3); EOS # 0.2 x10^3/uL (0.0-0.7); EOS % 2 % (0-3); HEMATOCRIT 29.3 % (39.0-53.0); HEMOGLOBIN 9.5 g/dL (13.0-17.5); LYMPH # 1.8 x10^3/uL (1.0-4.8); LYMPH % 15 % (24-48); MEAN CORPUSCULAR HEMOGLOBIN 29 pg (25-35); MEAN CORPUSCULAR HGB CONC 33 g/dL (31-37); MEAN CORPUSCULAR VOLUME 90 fL (79-100); MONO # 0.8 x10^3/uL (0.0-1.1); MONO % 7 % (0-9); NEUT % 76 % (31-73); PLATELET COUNT 397 x10^3/uL (140-400); RED BLOOD COUNT 3.27 x10^6/uL (4.30-5.70); RED CELL DISTRIBUTION WIDTH 13.8 % (11.5-14.5); WHITE BLOOD COUNT 11.9 x10^3/uL (4.0-11.0)
[2017-12-10 07:16] LABS: ALBUMIN 2.1 g/dL (3.4-5.0); ALBUMIN/GLOBULIN RATIO 0.6 (1.0-1.7); CALCIUM 7.9 mg/dL (8.5-10.1); CREATININE 0.8 mg/dL (0.7-1.3); GFR 100.7; POTASSIUM 3.9 mmol/L (3.5-5.1); TOTAL BILIRUBIN 0.4 mg/dL (0.2-1.0); TOTAL PROTEIN 5.9 g/dL (6.4-8.2)
[2017-12-10] MEDS: ENOXAPARIN ** NOTE DOSE ** SYRINGE SQ SCH (08:24)
[2017-12-10] MEDS: GABAPENTIN 300 MG CAPSULE. PO SCH ×3 (08:25→21:01)
[2017-12-10] MEDS: AMIODARONE HCL 200 MG TABLET PO SCH (08:25)
[2017-12-10] MEDS: CARVEDILOL 3.125 MG TABLET PO SCH ×2 (08:26→21:00)
[2017-12-10] MEDS: TAMSULOSIN 0.4 MG CAP.ER.24H. PO SCH (08:27)
[2017-12-10] MEDS: LACTOBACILLUS RHAMNOSUS GG 1 CAPSULE. PO SCH ×2 (08:27→21:01)
[2017-12-10] MEDS: levETIRAcetam 500 MG TABLET PO SCH ×2 (08:27→21:01)
[2017-12-10] MEDS: INSULIN ASPART 300 UNITS/3 ML INSULN.PEN SQ SCH ×3 (08:31→17:56)
[2017-12-10] MEDS ORDERED: PNEUMOC CONJ VACC 23-VALENT 0.5 ML VIAL. VAX IM ONE (09:00)
[2017-12-10] MEDS ORDERED: LISINOPRIL 2.5 MG TABLET PO SCH (09:00)
[2017-12-10] MEDS ORDERED: ISOSORBIDE MONONITRATE ER 30 MG TAB.ER.24H PO SCH (09:00)
--- NOTE | 2017-12-10 09:17 | PDOC2 ---
PAWEL CONCEPCION INSULATION SUPERVISOR 12/10/17 0917: CONSULT Date of Admission DATE: 12/10/17 TIME: 09:17 Reason for Consult: chest pain Problem List Problems Medical Problems: (1) Chest pain Status: Acute (2) CHF (congestive heart failure) Status: Acute (3) HCAP (healthcare-associated pneumonia) Status: Acute History of Present Illness Mr Peralta is a 52 year old male with history of diabetes mellitus. He suffered an CA and was transferred to [facility] for cardiac cath where he was noted to have triple vessel disease. He reports that he was told he was not strong enough for bypass at that time. He had recurrent chest pain after discharge and went to [facility] where he underwent bypass x 5 about 2 weeks ago. He reports cardiomyopathy with an EF of about 25%. He was discharged from [facility] 1 week ago and reports that he has had chest pain and swollen legs since that time. On Wed he says he was out with his mother shopping and his chest pain became so severe that he needed to sit in the car to wait. He describes pain that is worse with any movement or with deep inspiration, significantly increased with cough or laughing. He complains of significant swelling in both feet and lower legs and chronic diarrhea since discharge from the hospital. Past Medical History diabetes mellitus type 2, seizure disorder, recent CABG with ICM, hypertension and hyperlipidemia Past Surgical History CABG x5 by patient report, shoulder surgery, neck surgery, sinus surgery Family History CAD on father side of family Social History + history of smoking, reportedly quit about 2 months ago. He denies drug or ETOH use. Current Medications Current Medications Nitroglycerin (Nitro-Bid Oint) 1 inch 1X ONCE TP Last administered on at 10:24; Start 12/09/17 at 10:15; Stop 12/09/17 at 10:16; Status DC Furosemide (Lasix) 40 mg 1X ONCE IVP Last administered on 12/09/17at 10:23; Start 12/09/17 at 10:15; Stop 12/09/17 at 10:16; Status DC Oxycodone HCl (Roxicodone) 10 mg 1X STAT PO Last administered on 12/09/17at 10: 42; Start 12/09/17 at 10:25; Stop 12/09/17 at 10:29; Status DC Vancomycin HCl (Vanco Per Pharmacy) 1 each PRN DAILY PRN MC SEE COMMENTS Last administered on 12/09/17at 15:24; Start 12/09/17 at 11:15 Piperacillin Sod/ Tazobactam Sod 3.375 gm/Sodium Chloride 50 ml @ 100 mls/hr 1X ONCE IV Last administered on 12/09/17at 11:45; Start 12/09/17 at 11:15; Stop 12/09/17 at 11:44; Status DC Ondansetron HCl (Zofran) 4 mg PRN Q4HRS PRN IV NAUSEA/VOMITING; Start 12/09/17 at 11:15; Stop 12/10/17 at 11:14 Fentanyl Citrate (Fentanyl 2ml Vial) 50 mcg PRN Q2HR PRN IV PAIN Last administered on 12/10/17at 07:36; Start 12/09/17 at 11:15; Stop 12/10/17 at 11:14 Clopidogrel Bisulfate (Plavix) 75 mg 1X ONCE PO ; Start 12/09/17 at 11:30; Stop 12/09/17 at 11:30; Status DC Losartan Potassium (Cozaar) 25 mg 1X STAT PO ; Start 12/09/17 at 11:21; Stop 12/09/17 at 11:24; Status DC Vancomycin HCl 2 gm/Sodium Chloride 500 ml @ 250 mls/hr 1X ONCE IV Last administered on 12/09/17at 12:20; Start 12/09/17 at 11:30; Stop 12/09/17 at 13:30; Status DC Sodium Chloride 50 ml @ As Directed STK-MED ONCE .ROUTE ; Start 12/09/17 at 11:38 ; Stop 12/09/17 at 11:39; Status DC Piperacillin Sod/ Tazobactam Sod (Zosyn) 3.375 gm STK-MED ONCE IV ; Start at 11:38; Stop 12/09/17 at 11:39; Status DC Sodium Chloride 50 ml @ As Directed STK-MED ONCE .ROUTE ; Start 12/09/17 at 11:43 ; Stop 12/09/17 at 11:44; Status DC Piperacillin Sod/ Tazobactam Sod (Zosyn) 3.375 gm STK-MED ONCE IV ; Start at 11:43; Stop 12/09/17 at 11:44; Status DC Vancomycin HCl 1.5 gm/Sodium Chloride 500 ml @ 250 mls/hr Q8H IV Last administered on 12/10/17 04:08; Start 12/09/17 at 20:30 Vancomycin HCl (Vancomycin Trough Level) 1 each 1X ONCE MC ; Start 12/10/17 at 12:00; Stop 12/10/17 at 12:01 Amiodarone HCl (Cordarone) 200 mg DAILY PO Last administered on 12/10/17 08:25 ; Start 12/10/17 at 09:00 Carvedilol (Coreg) 3.125 mg BID PO Last administered on 12/10/17 08:26; Start 12/09/17 at 21:00 Gabapentin (Neurontin) 300 mg TID PO Last administered on 12/10/17 08:25; Start 12/09/17 at 21:00 Isosorbide Mononitrate (Imdur) 15 mg DAILY PO Last administered on 12/10/17 08: 27; Start 12/10/17 at 09:00 Levetiracetam (Keppra) 500 mg BID PO Last administered on 12/10/17 08:27; Start 12/09/17 at 21:00 Lisinopril (Prinivil) 2.5 mg DAILY PO Last administered on 12/10/17 08:26; Start 12/10/17 at 09:00 Tamsulosin HCl (Flomax) 0.4 mg DAILY PO Last administered on 12/10/17 08:27; Start 12/10/17 at 09:00 Atorvastatin Calcium (Lipitor) 80 mg QHS PO Last administered on 12/09/17at 20:33 ; Start 12/09/17 at 21:00 Doxepin HCl (SINEquan) 50 mg QHS PO Last administered on 12/09/17 21:25; Start 12/09/17 at 21:00 Insulin Aspart (NovoLOG) 7 units TIDWMEALS SQ Last administered on 12/10/17 08: 31; Start 12/10/17 at 08:00 Oxycodone HCl (Roxicodone) 20 mg PRN Q6HRS PRN PO PAIN Last administered on 12/10 08:24; Start 12/09/17 at 18:45 Pneumococcal Polyvalent Vaccine (Do NOT chart on this entry -- for MONITORING) 1 each PRN 1X PRN MC SEE COMMENTS; Start 12/09/17 at 18:45; Status UNV Enoxaparin Sodium (Lovenox 100mg Syringe) 100 mg Q12HR SQ Last administered on 12/10/17at 08:24; Start 12/09/17 at 21:00 Piperacillin Sod/ Tazobactam Sod 3.375 gm/Sodium Chloride 50 ml @ 100 mls/hr Q8H IV Last administered on 12/09/17at 20:27; Start 12/09/17 at 20:00 Lactobacillus Rhamnosus (Culturelle) 1 cap BID PO Last administered on at 08:27; Start 12/09/17 at 21:00 Pneumococcal Polyvalent Vaccine (Pneumovax 23) 0.5 ml ONCE ONCE VAX IM Last administered on 12/10/17at 08:30; Start 12/10/17 at 09:00; Stop 12/10/17 at 09:01; Status DC Active Scripts Active Reported Amiodarone Hcl 200 Mg Tablet 1 Tab PO DAILY Tamsulosin Hcl 0.4 Mg Cap.er.24h 1 Cap PO DAILY Carvedilol 3.125 Mg Tablet 1 Tab PO BID Trulicity (Dulaglutide) 0.75 Mg/0.5 Ml Pen.injctr 0.75 Mg SQ Doxepin Hcl 50 Mg Capsule 1 Cap PO QHS Lisinopril 2.5 Mg Tablet 1 Tab PO DAILY Isosorbide Mononitrate Er (Isosorbide Mononitrate) 30 Mg Tab.er.24h 0.5 Tab PO DAILY Gabapentin 300 Mg Capsule 300 Mg PO TID Atorvastatin Calcium 80 Mg Tablet 1 Tab PO DAILY Keppra (Levetiracetam) 500 Mg Tablet 1 Tab PO BID Allergies: Coded Allergies: acetaminophen (Verified Allergy, Severe, seizures, 11/15/17) ibuprofen (Verified Allergy, Severe, seizures, 11/15/17) ketorolac (Verified Allergy, Intermediate, seizure, 11/15/17) tramadol (Verified Allergy, Intermediate, 11/15/17) codeine (Verified Allergy, Unknown, 12/09/17) Review of System ROS negative other that as per HPI General: Alert, Oriented X3, Cooperative, mild distress HEENT: Atraumatic, EOMI Lungs: Other (decreased bilaterally) Heart: Regular rate, Normal S1, Normal S2, Other (no gallops, clicks or rubs, sternal incision well approximated and without signs of infection) Abdomen: Normal bowel sounds, Soft, No tenderness Extremities: No cyanosis, Normal pulses, Other (+2-3 edema bilateral lower extremitites) Neuro: Normal speech, Strength at 5/5 X4 ext Psych/Mental Status: Mental status NL, Mood NL VITALS Vital Signs Date Time Temp Pulse Resp B/P (MAP) Pulse Ox O2 Delivery O2 Flow Rate FiO2 12/10/17 08:27 78 111/76 12/10/17 08:24 16 95 Room Air 12/10/17 05:41 2.0 12/10/17 03:17 98.3 Labs Laboratory Tests Test 12/09/17 10:19 12/09/17 10:55 12/09/17 11:57 12/09/17 14:25 White Blood Count 14.9 x10^3/uL (4.0-11.0) Red Blood Count 3.53 x10^6/uL (4.30-5.70) Hemoglobin 10.3 g/dL (13.0-17.5) Hematocrit 31.3 % (39.0-53.0) Mean Corpuscular Volume 89 fL (79-100) Mean Corpuscular Hemoglobin 29 pg (25-35) Mean Corpuscular Hemoglobin Concent 33 g/dL (31-37) Red Cell Distribution Width 13.9 % (11.5-14.5) Platelet Count 452 x10^3/uL (140-400) Neutrophils (%) (Auto) 83 % (31-73) Lymphocytes (%) (Auto) 9 % (24-48) Monocytes (%) (Auto) 6 % (0-9) Eosinophils (%) (Auto) 1 % (0-3) Basophils (%) (Auto) 1 % (0-3) Neutrophils # (Auto) 12.3 x10^3uL (1.8-7.7) Lymphocytes # (Auto) 1.3 x10^3/uL (1.0-4.8) Monocytes # (Auto) 0.9 x10^3/uL (0.0-1.1) Eosinophils # (Auto) 0.2 x10^3/uL (0.0-0.7) Basophils # (Auto) 0.1 x10^3/uL (0.0-0.2) Prothrombin Time 11.1 SEC (9.4-11.4) Prothromb Time International Ratio 1.1 (0.9-1.1) Activated Partial Thromboplast Time 27 SEC (23-33) Sodium Level 136 mmol/L (136-145) Potassium Level 4.3 mmol/L (3.5-5.1) Chloride Level 104 mmol/L (98-107) Carbon Dioxide Level 24 mmol/L (21-32) Anion Gap 8 (6-14) Blood Urea Nitrogen 12 mg/dL (8-26) Creatinine 0.8 mg/dL (0.7-1.3) Estimated GFR (Cockcroft-Gault) 100.7 BUN/Creatinine Ratio 15 (6-20) Glucose Level 182 mg/dL (70-99) Calcium Level 8.3 mg/dL (8.5-10.1) Magnesium Level 1.7 mg/dL (1.8-2.4) Total Bilirubin 0.4 mg/dL (0.2-1.0) Aspartate Amino Transf (AST/SGOT) 32 U/L (15-37) Alanine Aminotransferase (ALT/SGPT) 67 U/L (16-63) Alkaline Phosphatase 164 U/L (46-116) Creatine Kinase 56 U/L (39-308) Bedside Troponin I 0.01 ng/ml (<0.08) NR-Zhi-A-Type Natriuretic Peptide 3074 pg/mL (0-124) Total Protein 7.0 g/dL (6.4-8.2) Albumin 2.6 g/dL (3.4-5.0) Albumin/Globulin Ratio 0.6 (1.0-1.7) Urine Opiates Screen Neg (NEG) Urine Methadone Screen Neg (NEG) Urine Barbiturates Neg (NEG) Urine Phencyclidine Screen Neg (NEG) Urine Amphetamine/Methamphetamine Neg (NEG) Urine Benzodiazepines Screen Neg (NEG) Urine Cocaine Screen Neg (NEG) Urine Cannabinoids Screen Neg (NEG) Urine Ethyl Alcohol Neg (NEG) Lactic Acid Level 0.8 mmol/L (0.4-2.0) Nasal Screen MRSA (PCR) Negative (Negative) Test 12/09/17 14:46 12/09/17 17:10 12/10/17 06:09 Bedside Troponin I 0.02 ng/ml (<0.08) 0.01 ng/ml (<0.08) White Blood Count 11.9 x10^3/uL (4.0-11.0) Red Blood Count 3.27 x10^6/uL (4.30-5.70) Hemoglobin 9.5 g/dL (13.0-17.5) Hematocrit 29.3 % (39.0-53.0) Mean Corpuscular Volume 90 fL (79-100) Mean Corpuscular Hemoglobin 29 pg (25-35) Mean Corpuscular Hemoglobin Concent 33 g/dL (31-37) Red Cell Distribution Width 13.8 % (11.5-14.5) Platelet Count 397 x10^3/uL (140-400) Neutrophils (%) (Auto) 76 % (31-73) Lymphocytes (%) (Auto) 15 % (24-48) Monocytes (%) (Auto) 7 % (0-9) Eosinophils (%) (Auto) 2 % (0-3) Basophils (%) (Auto) 1 % (0-3) Neutrophils # (Auto) 9.0 x10^3uL (1.8-7.7) Lymphocytes # (Auto) 1.8 x10^3/uL (1.0-4.8) Monocytes # (Auto) 0.8 x10^3/uL (0.0-1.1) Eosinophils # (Auto) 0.2 x10^3/uL (0.0-0.7) Basophils # (Auto) 0.1 x10^3/uL (0.0-0.2) Sodium Level 138 mmol/L (136-145) Potassium Level 3.9 mmol/L (3.5-5.1) Chloride Level 106 mmol/L (98-107) Carbon Dioxide Level 26 mmol/L (21-32) Anion Gap 6 (6-14) Blood Urea Nitrogen 14 mg/dL (8-26) Creatinine 0.8 mg/dL (0.7-1.3) Estimated GFR (Cockcroft-Gault) 100.7 BUN/Creatinine Ratio 18 (6-20) Glucose Level 221 mg/dL (70-99) Calcium Level 7.9 mg/dL (8.5-10.1) Total Bilirubin 0.4 mg/dL (0.2-1.0) Aspartate Amino Transf (AST/SGOT) 16 U/L (15-37) Alanine Aminotransferase (ALT/SGPT) 47 U/L (16-63) Alkaline Phosphatase 123 U/L (46-116) Total Protein 5.9 g/dL (6.4-8.2) Albumin 2.1 g/dL (3.4-5.0) Albumin/Globulin Ratio 0.6 (1.0-1.7) Images CXR - IMPRESSION: Bibasilar opacities, left greater than right, suggest pleural fluid with underlying atelectasis/infiltrate. A component of pneumonia cannot be excluded. Assessment/Plan 1. Chest pain, atypical - likely secondary to PNA, CA ruled out. 2. CAD s/p recent CABG x 5, He is on amiodarone, presumably as preventative for post op atrial fibrillation but will request records for review. 3. ICM - ef reported at 25% 4. PNA 5. hypotension - low doses of coreg, lisinopril and isosorbide suggests that his pressures have consistently been on the low side. Request records. 6. PNA - mgmt per PCP 7. hyperlipidemia - continue statin, check lipids 8. diabetes mellitus - mgmt per PCP Suggest request records from [facility] and [facility], limited echo for LV function. Discontinue isosorbide and lisinopril as blood pressure is low. Good candidate for Entresto as outpatient. Lower extremity venous duplex studies. Likely has a component of CHF in addition to PNA. Monitor blood pressure and consider lasix drip, mgmt of PNA as per PCP. Problems: RODERICK TORRES MD 12/10/17 2003: CONSULT Allergies: Coded Allergies: acetaminophen (Verified Allergy, Severe, seizures, 11/15/17) ibuprofen (Verified Allergy, Severe, seizures, 11/15/17) ketorolac (Verified Allergy, Intermediate, seizure, 11/15/17) tramadol (Verified Allergy, Intermediate, 11/15/17) codeine (Verified Allergy, Unknown, 12/09/17) Assessment/Plan The patient seen and examined 1. Recent bypass surgery. As started above patient had previous catheterization at [facility] finding multivessel disease but considered too weak at that time for CABG. The patient then apparently went to [facility] for additional symptoms and underwent 5 vessel bypass surgery approximately 2 weeks ago. He was discharged 1 week ago. Since then he reports continued pain and swelling of his lower extremities. Reported ejection fraction on echo was 25 %. Patient reported used tobacco until a few weeks ago. He also went home on significant pain medicines. At this time we'll rule out for myocardial infarction but do not expect any acute infarction to be present. Primary problem at this time is hypotension which has kept the patient from being adequately diuresed. At this time will start on dobutamine and attempt to maintain a systolic pressure greater than 100 mmHg. If this is possible we will attempt mild diuresis tomorrow with close monitoring of his lab. 2. Probable pneumonia. Patient on antibiotics as noted above. 3. Hypotension. Dobutamine treatment as noted above. 4. Hyperlipidemia. Statin medications. 5. Diabetes mellitus as per the primary service. I anticipate the patient will be a difficult case. He has poor LV function and probable compromised pulmonary function from a history of tobacco use. We'll treat as above but if the patient does not improve he may require transfer to [place] or possibly to [facility]. His treatment and condition were discussed with the patient and his family. Problems: PAWEL CONCEPCION APRN Dec 10, 2017 09:17 RODERICK TORRES MD Dec 10, 2017 20:03
--- NOTE | 2017-12-10 11:36 | RAD ---
Bilateral lower extremity venous ultrasound, 12/10/2017: History: Bilateral leg swelling, postop heart surgery Duplex evaluation of the deep veins in the lower extremities was performed including grayscale, color-flow and spectral Doppler analysis. The femoral and popliteal veins demonstrate normal compressibility and normal responses to distal augmentation maneuvers. Color imaging of those vessels shows no evidence of intraluminal clot. The visualized deep veins in both calves are patent. IMPRESSION: There is no sonographic evidence of deep vein thrombosis in either lower extremity.
[2017-12-10] MEDS: PIPERACILLIN/TAZOBACTAM 3.375 GM in IV NORMAL SALINE 50ML 50 ML IV SCH ×2 (11:55→21:00)
[2017-12-10] MEDS ORDERED: LOPERAMIDE 2 MG CAPSULE PO PRN (12:15)
[2017-12-10 13:50] LABS: VANC TR 17.4 mcg/mL (10.0-20.0)
[2017-12-10] MEDS: VANCOMYCIN PER PHARMACY MC PRN (14:36)
[2017-12-10] MEDS: ATORVASTATIN CALCIUM 20 MG TABLET PO SCH (21:00)
[2017-12-10] MEDS: DOXEPIN HCL 25 MG CAPSULE PO SCH (21:00)
[2017-12-10] MEDS: oxyCODONE ER 10 MG TAB.ER.12H PO SCH (21:01)
--- NOTE | 2017-12-10 22:14 | PN ---
DATE: 12/10/2017 SUBJECTIVE: The patient is resting slightly propped up in bed, in no apparent respiratory distress. He has continued to complain of severe pain in his low back and both legs and chest. His blood pressure is extremely low and so we could not really give him any Lasix. He is getting 20 mg of oxycodone 4 times a day. He has bilateral lower limb swelling and venous Doppler ultrasound showed no evidence of deep vein thrombosis. PHYSICAL EXAMINATION: GENERAL: When I examined him this afternoon, he looked pale, but no jaundice, cyanosis or thyromegaly. No jugular venous distention. No lower limb edema. VITAL SIGNS: His heart rate was 78, blood pressure was 85/64. His temperature was 98.5, respiratory rate was 14 and oxygen saturation was 96%. HEAD, EYES, EARS, NOSE AND THROAT: Showed normocephalic, atraumatic. NECK: Supple. HEART: Showed normal first and second heart sounds with no gallop, rub or murmur. CHEST: Clear to auscultation. No crepitation or rhonchi. ABDOMEN: Distended, soft, nontender. No guarding or rigidity. No organomegaly. All hernial orifices intact. Bowel sounds normal. NEUROLOGIC: He is awake, alert, responding appropriately. All cranial nerves intact. He moves extremities without difficulty. His intake over the last 24 hours was 3125, output was 2300. LABORATORY DATA: As of this morning showed serum sodium of 138, potassium 3.9, chloride 106, bicarbonate 26, anion gap of 6, BUN 14, creatinine 0.8, estimated GFR was 100 mL per minute. His glucose was 221. Calcium was 7.9. Total bilirubin, AST, ALT, alkaline phosphatase were normal. Three sets of cardiac enzymes that were all negative. Total protein was 5.9, albumin 2.1. His prothrombin time was 11.1, INR 1.1, aPTT was 27. His toxicology screen was negative and they stated he has bilateral lower extremity Doppler ultrasound showed no sonographic evidence of deep vein thrombosis in either lower extremity. PLAN: My plan is to switch Lovenox to prophylactic dose instead of therapeutic dose. Discontinue perhaps the isosorbide dinitrate and perhaps lisinopril also, discontinue the fentanyl as he is already with his labs and await the evaluation by the calender supervisor. I do not know whether dobutamine drip might be something that can be considered to improve the blood pressure and hopefully diurese him. I will also consult this with the occupational therapist to see if lymphedema wrap is something that we consider in this patient. NILDA RICE MD DR: KAYODE/idris JOB#: [id number] / [id number]
[2017-12-11] VITALS (13 sets, daily range): BP systolic 84–115; BP diastolic 60–85
[2017-12-11] MEDS: oxyCODONE IR 5 MG TABLET PO PRN ×5 (02:09→16:51)
[2017-12-11] MEDS ORDERED: ACETAMINOPHEN 325 MG TABLET PO PRN (04:00)
[2017-12-11] MEDS: PIPERACILLIN/TAZOBACTAM 3.375 GM in IV NORMAL SALINE 50ML 50 ML IV SCH ×2 (04:12→12:04)
[2017-12-11] MEDS: VANCOMYCIN 1.5 GM in IV NORMAL SALINE 500ML 500 ML IV SCH ×2 (04:59→12:04)
[2017-12-11 06:17] LABS: CREATININE 0.9 mg/dL (0.7-1.3); GFR 87.9
[2017-12-11 06:18] LABS: MAGNESIUM 1.4 mg/dL (1.8-2.4)
[2017-12-11 06:24] LABS: BASO # 0.1 x10^3/uL (0.0-0.2); BASO % 1 % (0-3); EOS # 0.2 x10^3/uL (0.0-0.7); EOS % 2 % (0-3); HEMATOCRIT 28.6 % (39.0-53.0); HEMOGLOBIN 9.2 g/dL (13.0-17.5); LYMPH # 1.6 x10^3/uL (1.0-4.8); LYMPH % 14 % (24-48); MEAN CORPUSCULAR HEMOGLOBIN 29 pg (25-35); MEAN CORPUSCULAR HGB CONC 32 g/dL (31-37); MEAN CORPUSCULAR VOLUME 90 fL (79-100); MONO # 0.9 x10^3/uL (0.0-1.1); MONO % 8 % (0-9); NEUT # 8.8 x10^3uL (1.8-7.7); NEUT % 76 % (31-73); PLATELET COUNT 438 x10^3/uL (140-400); RED BLOOD COUNT 3.19 x10^6/uL (4.30-5.70); WHITE BLOOD COUNT 11.6 x10^3/uL (4.0-11.0)
[2017-12-11] MEDS: INSULIN ASPART 300 UNITS/3 ML INSULN.PEN SQ SCH ×2 (08:21→12:05)
[2017-12-11] MEDS: GABAPENTIN 300 MG CAPSULE. PO SCH ×2 (08:41→14:08)
[2017-12-11] MEDS: CARVEDILOL 3.125 MG TABLET PO SCH (08:41)
[2017-12-11] MEDS: levETIRAcetam 500 MG TABLET PO SCH (08:41)
[2017-12-11] MEDS: TAMSULOSIN 0.4 MG CAP.ER.24H. PO SCH (08:41)
[2017-12-11] MEDS: LACTOBACILLUS RHAMNOSUS GG 1 CAPSULE. PO SCH (08:41)
[2017-12-11] MEDS: oxyCODONE ER 10 MG TAB.ER.12H PO SCH (08:42)
[2017-12-11] MEDS ORDERED: ENOXAPARIN 40 MG/0.4 ML DISP.SYRIN. SQ SCH (09:00)
[2017-12-11] MEDS: AMIODARONE HCL 200 MG TABLET PO SCH (09:00)
[2017-12-11] MEDS: VANCOMYCIN PER PHARMACY MC PRN (09:10)
--- NOTE | 2017-12-11 11:15 | EKG ---
[address] [address] Test Date: 2017-12-11 Test Time: 10:38:33 Pat Name: MIRZA SIU Department: Room: [facility] 1 Gender: M Media Coordinator: BENJAMIN : 1965 Requested By: RODERICK TORRES Order Number: [id number] Reading MD: Stephen Disla Measurements Intervals [place] Rate: 109 P: 54 LA: 138 QRS: 61 QRSD: 120 T: -126 QT: 354 QTc: 478 Interpretive Statements SINUS TACHYCARDIA LOW LIMB LEAD VOLTAGE T ABNORMALITY IN ANTEROLATERAL LEADS ABNORMAL ECG Electronically Signed On 12-24-2017 13:52:56 CDT by Stephen Disla
--- NOTE | 2017-12-12 12:40 | CARD ---
MR#: [id number] Account#: Date of Study: 12/10/2017 Ordering Physician: Arun: LAKESHIA Steward APPROVED REPORT EXAM: Two-dimensional and M-mode echocardiogram with Doppler and color Doppler. Other Information Quality : Average INDICATION Dyspnea CAD Chest Pain Chest pressure S/P CABG x5 (2 weeks Prior) 2D DIMENSIONS Left Atrium(2D)5.2 (1.6-4.0cm)IVSd1.5 (0.7-1.1cm) Aortic Root(2D)2.5 (2.0-3.7cm)LVDd5.8 (3.9-5.9cm) LVOT Diameter2.0 (1.8-2.4cm)PWd1.5 (0.7-1.1cm) LVDs5.0 (2.5-4.0cm)FS (%) 13.3 % SV46.2 mlLVEF(%)28.0 (>50%) Aortic Valve AoV Peak Carlos Eduardo.181.0cm/Rajat Peak GR.13.1mmHg Mitral Valve MV E Kkgxbyig410.1cm/sMV DECEL DITF881je MV A Mdjigsri43.6cm/sE/A Ratio3.0 Tricuspid Valve TR P. Tnkrltzr731ia/sRAP [id number] TR Peak Gr.[id number] LEFT VENTRICLE The left ventricle is at the upper limit of normal. There is mild concentric left ventricular hypertr ophy. The systolic function is severely impaired. The Ejection Fraction is estimated at 25%. There is global hypokinesis of the left ventricle. RIGHT VENTRICLE The right ventricle is normal size. There is normal right ventricular wall thickness. Systolic functi on is mildly reduced. ATRIA The left atrium is moderately dilated. The right atrium is moderately dilated. The interatrial septum is intact with no evidence for an atrial septal defect or patent foramen ovale as noted on 2-D or Do ppler imaging. AORTIC VALVE The aortic valve is trileaflet. The aortic valve is moderately sclerotic. Doppler and Color Flow reve aled trace aortic regurgitation. There is no significant aortic valvular stenosis. MITRAL VALVE The mitral valve is normal in structure and function. There is no evidence of mitral valve prolapse. There is no mitral valve stenosis. Doppler and Color-flow revealed mild mitral regurgitation. TRICUSPID VALVE Doppler and Color Flow revealed mild tricuspid regurgitation. PASP is 49 mmHg. There is no tricuspid valve stenosis. PULMONIC VALVE The pulmonic valve is not well visualized. Doppler and Color Flow revealed trace pulmonic valvular re gurgitation. There is no pulmonic valvular stenosis. GREAT VESSELS The aortic root is normal in size. The IVC is dilated with minimal response with inspiration. PERICARDIAL EFFUSION There is a pleural effusion. There is no evidence of significant pericardial effusion. Critical Notification Critical Value: No <Conclusion> The left ventricle is at the upper limit of normal. The systolic function is severely impaired. The Ejection Fraction is estimated at 25%. There is global hypokinesis of the left ventricle. There is mild concentric left ventricular hypertrophy. There is no significant aortic valvular stenosis. Doppler and Color Flow revealed trace aortic regurgitation. Doppler and Color-flow revealed mild mitral regurgitation. Doppler and Color Flow revealed mild tricuspid regurgitation. PASP is 49 mmHg. There is a pleural effusion. There is no evidence of significant pericardial effusion. Signed by : Morgan Ibarra MD Electronically Approved : 12/10/2017 18:05:12
--- NOTE | 2017-12-23 13:10 | DS ---
DATE OF DISCHARGE: 12/11/2017 DISCHARGE TRANSFER SUMMARY HOSPITAL COURSE: The patient is a 52-year-old male patient who was admitted to [facility] Emergency Room with a complaint of shortness of breath, chest pain as well as bilateral lower extremity edema. He has extensive cardiac history and was at [facility] 2 weeks prior to admission where he underwent triple bypass surgery by the cardiothoracic surgeon and was followed by Dr. Quevedo, the stuffing machine operator. He claims that he has been taking his medication as prescribed, but said that he has been complaining of increasing shortness of breath, chest tightness especially in the left side without any radiation. Denied any nausea, vomiting or diaphoresis; however, he does complain of shortness of breath and marked swelling of both lower extremities. In the Emergency Room, he had a chest x-ray, which showed bilateral pneumonic infiltrate and he was treated with IV vancomycin and Zosyn, and was admitted to the ICU. We continued the antibiotic treatment. His echocardiogram showed that his ejection fraction was extremely low. In fact, his left ventricular size at the upper limit of normal. Systolic function is severely impaired, his ejection fraction was estimated at 25%. He has global hypokinesis of the left ventricle with mild concentric left ventricular hypertrophy. No significant aortic valvular stenosis, trace aortic regurgitation, mild mitral regurgitation, mild tricuspid regurgitation. His pulmonary artery systolic pressure was 49 mmHg. There is pleural effusion, but no evidence of any significant pericardial effusion. Unfortunately, the patient continued to be hypertensive and in consultation with Dr. Rose, a decision was made to put him on a dobutamine drip; however, the patient continued to complain of severe pain despite the fact that the 3 sets of cardiac enzymes were negative and in a consultation with Dr. Rose, he recommended to transfer him to a [facility] CVICU with a plan to start him on milrinone as well as possible cardiac left to right and right heart a cardiac catheterization. PHYSICAL EXAMINATION: On the day of discharge. GENERAL: The patient looked well and was clearly in no apparent respiratory distress. He was pale, but no jaundice, cyanosis, or thyromegaly. No jugular venous distension. No limb edema. VITAL SIGNS: His heart rate was 104, blood pressure was 100/69, temperature was 98, respiratory rate was 16, and oxygen saturation was 95% on room air. HEAD, EYES, EARS, NOSE AND THROAT: Normocephalic, atraumatic. NECK: Supple. HEART: Showed normal first and second sounds. No gallop, rub or murmur. CHEST: Shows central trachea. Equal bilateral expansion, air entry, vesicular breath sounds. No crepitation or rhonchi. Has dull percussion noted and absent breath sounds bilaterally posteriorly. ABDOMEN: Slightly distended, soft, nontender. No guarding or rigidity. No organomegaly. All hernial orifices intact. Bowel sounds normal. NEUROLOGIC: He is awake, alert, responding appropriately. Cranial nerves intact. He moves extremities without difficulty, ambulates without assistance or assistive devices. His intake over the last 24 hours was 1630, output was 1400. LABORATORY DATA: Showed a white cell count of 11,600, hemoglobin 9, hematocrit 29, MCV 90 and platelet count of 438,000. His chemistry showed a serum sodium 139, potassium 4, chloride 105, bicarbonate 24, anion gap of 10, BUN 14, creatinine 0.9, estimated GFR was 88 mL per minute. His glucose was 188, calcium was 8, magnesium was 1.4. His prothrombin time was 11.1, INR of 1.2, aPTT was 27. DISCHARGE MEDICATIONS: He was transferred to [facility] to continue on his Zosyn and vancomycin. Continue with the dobutamine drip. Continue with all his other medications including amiodarone 200 mg once a day, atorvastatin calcium 80 mg at bedtime, carvedilol 3.125 mg once a day, doxepin 50 mg at bedtime, Trulicity 0.75 mg subcutaneously daily, gabapentin 300 mg 3 times a day, isosorbide mononitrate 30 mg that he takes half a tablet once a day, Keppra 500 mg daily, lisinopril 2.5 mg once a day, and tamsulosin for Flomax 0.4 mg at bedtime. FINAL DISCHARGE DIAGNOSES: Chest pain, most likely musculoskeletal given that the recent open heart surgery and no evidence of myocardial infarction; congestive heart failure with poor ejection fraction of only 20%; hypertension, multifactorial; bilateral pneumonic infiltrate for which he is on Zosyn and vancomycin; hyperlipidemia; type 2 diabetes; and seizures. AHMED M. KRYSTAL, MD DR: KAYODE/idris JOB#: [id number] / [id number]
== END 2017-12-11 17:11 | disposition short-term general hospital (02) | DRG 193 ==
LOC: ER 09:46 → ICU 11:35
PROVIDERS: ADMIT Internal Medicine; ATTEND Internal Medicine
DX: J18.9 Pneumonia, unspecified organism (principal); E43 Unspecified severe protein-calorie malnutrition; I11.0 Hypertensive heart disease with heart failure; I95.9 Hypotension, unspecified; I50.9 Heart failure, unspecified; Y95 Nosocomial condition; E78.5 Hyperlipidemia, unspecified; G40.909 Epilepsy, unspecified, not intractable, without status epilepticus; I25.10 Atherosclerotic heart disease of native coronary artery without angina pectoris; I25.5 Ischemic cardiomyopathy; E78.00 Pure hypercholesterolemia, unspecified; E11.9 Type 2 diabetes mellitus without complications; F17.210 Nicotine dependence, cigarettes, uncomplicated; Z88.5 Allergy status to narcotic agent; Z88.8 Allergy status to other drugs, medicaments and biological substances; Z82.49 Family history of ischemic heart disease and other diseases of the circulatory system; Z80.7 Family history of other malignant neoplasms of lymphoid, hematopoietic and related tissues; Z83.3 Family history of diabetes mellitus; Z79.899 Other long term (current) drug therapy; I25.2 Old myocardial infarction; Z95.1 Presence of aortocoronary bypass graft
CPT/HCPCS: 36415; 71045; 80048; 80053; 80202; 80307; 82550; 82947; 83605; 83735; 83880; 84484; 85025; 85610; 85730; 87040; 87641; 90732; 93005; 93306; 93970; 96365; 96366; 96367; 96375; J1250; J1650; J1815; J1940; J2543; J3010; J3370; J7040; 99291-25; G0479